=== PATIENT | female | born 1990 | race Two or more races ===

== ENCOUNTER → 2019-12-26 | Outpatient (CLI) | payer BC ==
[2019-12-26 10:42] LABS: BASOPHILS # (AUTO) 0.02 x10^3/uL (0-0.1); BASOPHILS % (AUTO) 0 % (0-1); EOSINOPHILS # (AUTO) 0.07 x10^3/uL (0-0.4); EOSINOPHILS % (AUTO) 1 % (1-7); LYMPHOCYTES # (AUTO) 1.58 x10^3/uL (1-3.4); LYMPHOCYTES % (AUTO) 27 % (22-44); MD NO; MEAN CORPUSCULAR HEMOGLOBIN 26.1 pg (27.0-34.8); MEAN CORPUSCULAR HGB CONC 32.4 g/dL (32.4-35.8); MEAN CORPUSCULAR VOLUME 80.6 fL (80-100); MEAN PLATELET VOLUME 8.9 fL (7.4-10.4); MONOCYTES # (AUTO) 0.35 x10^3/uL (0.2-0.8); MONOCYTES % (AUTO) 6 % (2-9); NEUTROPHILS # (AUTO) 3.78 x10^3/uL (1.8-6.8); NEUTROPHILS % (AUTO) 65 % (42-75); PLATELET COUNT 302 x10^3/uL (130-400); RED BLOOD COUNT 4.86 x10^6/uL (3.82-5.3); RED CELL DISTRIBUTION WIDTH 14.7 % (9.6-15.2)
[2019-12-26 10:49] LABS: ANION GAP 9 mmol/L (5-15); CALCIUM 8.7 mg/dL (8.5-10.1); CHLORIDE 108 mmol/L (98-107)
== END | disposition home or self-care (01) ==
LOC: STAR 09:47
PROVIDERS: ATTEND Obstetrics & Gynecology
DX: Z01.818 Encounter for other preprocedural examination (principal); N92.0 Excessive and frequent menstruation with regular cycle; N94.6 Dysmenorrhea, unspecified
CPT/HCPCS: 36415; 80048; 84703; 85025

== ENCOUNTER 2020-01-01 08:15 | Day surgery (SDC) | payer BC ==
[~2020-01-01] VITALS: Ht 162.6 cm; Wt 84.2 kg
[~2020-01-01 08:15] MED LIST: BUPIVACAINE/PF-EPI 0.25% 1:200K ONE; FLUORESCEIN SODIUM 500 MG/5 ML ONE
[2020-01-01] MEDS ORDERED: ONDANSETRON 2MG/ML, 2ML ONE (08:37)
[2020-01-01] MEDS ORDERED: LIDOCAINE-MPF 2% ,5ML ONE (08:37)
[2020-01-01] MEDS ORDERED: PROPOFOL 10 MG/ML, 20ML ONE (08:37)
[2020-01-01] MEDS ORDERED: DEXAMETHASONE 4 MG/ML, 1ML ONE (08:37)
[2020-01-01] MEDS ORDERED: GLYCOPYRROLATE 0.2MG/1ML, 5ML ONE (08:37)
[2020-01-01] MEDS ORDERED: ROCURONIUM 10MG/ML,5ML ONE (08:37)
[2020-01-01] MEDS ORDERED: FENTANYL PF 250 MCG/5ML ONE (08:38)
[2020-01-01] MEDS ORDERED: MIDAZOLAM 1 MG/ML, 2ML ONE (08:38)
[2020-01-01 08:49] VITALS: BP 108/67
[2020-01-01] MEDS ORDERED: LACTATED RINGERS 1,000 ML IV SCH (08:51)
[2020-01-01] MEDS ORDERED: CHLORHEXIDINE 15 ML UDC MM ONE (09:00)
[2020-01-01] MEDS ORDERED: LIDOCAINE-MPF 1%, 2ML INFIL ONE (09:00)
[2020-01-01] MEDS ORDERED: SCOPOLAMINE 1MG PATCH TD ONE ×2 (09:12→09:30)
[2020-01-01] MEDS ORDERED: CEFAZOLIN 1,000 MG ONE (09:22)
[2020-01-01] MEDS ORDERED: MEPERIDINE/PF 25MG/0.5ML IVPush PRN (09:30)
[2020-01-01] MEDS ORDERED: METOCLOPRAMIDE 5 MG/ML, 2ML IVPush PRN (09:30)
[2020-01-01] MEDS ORDERED: EPHEDRINE 50 MG/ML, 1ML IM PRN (09:30)
[2020-01-01] MEDS ORDERED: ALBUTEROL/IPRATROPIUM 2.5MG/0.5MG, 3 ML NPPB PRN (09:30)
[2020-01-01] MEDS ORDERED: DIAZEPAM 5 MG/ML, 2ML IVPush PRN (09:30)
[2020-01-01] MEDS ORDERED: HYDROmorphone 1 MG/ML, 1ML INJ IVPush PRN (09:30)
[2020-01-01] MEDS ORDERED: MIDAZOLAM 1 MG/ML, 2ML IV PRN (09:30)
[2020-01-01] MEDS ORDERED: HALOPERIDOL 5 MG/ML IV PRN (09:30)
[2020-01-01] MEDS ORDERED: LABETALOL 5MG/ML, 20ML IV PRN (09:30)
[2020-01-01] MEDS ORDERED: ACETAMINOPHEN 325 MG TABLET PO PRN (09:30)
[2020-01-01] MEDS ORDERED: OXYcodone 5 MG/5 ML ORAL.SOL UDC PO PRN (09:30)
[2020-01-01] MEDS ORDERED: ONDANSETRON 2MG/ML, 2ML IVPush PRN (09:30)
[2020-01-01] MEDS ORDERED: KETOROLAC 30 MG/1 ML IVPush PRN (09:30)
[2020-01-01] MEDS ORDERED: LORazepam 2 MG/ML, 1ML IVPush PRN (09:30)
[2020-01-01] MEDS ORDERED: EPHEDRINE 50 MG/ML, 1ML IVPush PRN (09:30)
[2020-01-01] MEDS ORDERED: DIPHENHYDRAMINE 50 MG/ML, 1ML IVPush PRN (09:30)
[2020-01-01] MEDS ORDERED: HYDROcodone/APAP 7.5-325MG/15ML UDC PO PRN (09:30)
[2020-01-01] MEDS ORDERED: FENTANYL PF 100 MCG/2ML IV PRN (09:30)
[2020-01-01] MEDS ORDERED: SCOPOLAMINE 1MG PATCH TD SCH (09:30)
[2020-01-01] MEDS ORDERED: hydrALAzine 20 MG/ML, 1ML IV PRN (09:30)
[2020-01-01] MEDS ORDERED: KETOROLAC 30 MG/1 ML ONE (09:53)
[2020-01-01] MEDS ORDERED: BUPIVACAINE/PF-EPI 0.25% 1:200K INFIL ONE (10:00)
[2020-01-01] MEDS ORDERED: BUPIVACAINE/PF 0.25% INFIL ONE (10:00)
[2020-01-01] MEDS ORDERED: FENTANYL PF 100 MCG/2ML ONE (11:22)
[2020-01-01] MEDS ORDERED: OXYcodone 5 MG/5 ML ORAL.SOL UDC ONE (11:31)
[2020-01-01] MEDS ORDERED: FLUORESCEIN SODIUM 500 MG/5 ML ONE (14:36)
[2020-01-01 15:13] LABS: MEAN CORPUSCULAR HEMOGLOBIN 25.6 pg (27.0-34.8); MEAN CORPUSCULAR HGB CONC 32.5 g/dL (32.4-35.8); MEAN CORPUSCULAR VOLUME 78.8 fL (80-100); MEAN PLATELET VOLUME 8.8 fL (7.4-10.4); PLATELET COUNT 312 x10^3/uL (130-400); RED BLOOD COUNT 4.72 x10^6/uL (3.82-5.3); RED CELL DISTRIBUTION WIDTH 14.6 % (9.6-15.2)
[2020-01-01 16:11] LABS: BASOPHILS # (AUTO) 0.01 x10^3/uL (0-0.1); BASOPHILS % (AUTO) 0 % (0-1); EOSINOPHILS % (AUTO) 0 % (1-7); LYMPHOCYTES # (AUTO) 0.48 x10^3/uL (1-3.4); LYMPHOCYTES % (AUTO) 4 % (22-44); MD SCAN; MONOCYTES # (AUTO) 0.05 x10^3/uL (0.2-0.8); MONOCYTES % (AUTO) 0 % (2-9); NEUTROPHILS # (AUTO) 12.03 x10^3/uL (1.8-6.8); NEUTROPHILS % (AUTO) 96 % (42-75)
== END 2020-01-01 17:40 | disposition home or self-care (01) ==
LOC: OUT 08:15
PROVIDERS: ATTEND Obstetrics & Gynecology
DX: N92.0 Excessive and frequent menstruation with regular cycle (principal); Z11.59 Encounter for screening for other viral diseases; N80.0 Endometriosis of uterus; E66.9 Obesity, unspecified; Z79.899 Other long term (current) drug therapy
CPT/HCPCS: 36415; 58262; 81025; 85025; 86850; 86900; 88307; J0690; J1100; J1885; J2250; J2405; J2704; J3010; U0001; J3490